=== PATIENT | female | born 1955 | race Caucasian/White ===

== ENCOUNTER 2023-12-28 21:04 | Emergency (ER) | payer OTHER, SELFPAY ==
[2023-12-28 21:07] VITALS: BP 174/100
[2023-12-28 21:21] LABS: % Basophils 0.4 % (0-2); % Eosinophils 0.6 % (0-6); % Immature Granulocytes 0.1 % (0-0.5); % Lymphocytes 27.9 % (20.5-51.1); % Monocytes 8.4 % (1.7-9.3); % Neutrophils 62.6 % (42.2-75.2); Absolute Monocytes 0.6 10^3/uL (0.1-0.6); Absolute Neutrophils 4.5 10^3/uL (1.4-6.5); Hematocrit 41.7 % (37.0-47.0); Hemoglobin 14.2 g/dL (12.0-16.0); Mean Corp Hgb Conc. 34.1 g/dL (33.0-37.0); Mean Corpuscular Hgb 28.3 pg (27.0-31.0); Mean Corpuscular Volume 83.2 fL (81.0-99.0); Nucleated Red Blood Cells % 0 %; Platelet Count 299 10^3/uL (130-400); Red Blood Cell Count 5.01 10^6/uL (4.20-5.40); Red Cell Dist. Width 13.4 % (11.5-14.5); White Blood Cell Count 7.2 10^3/uL (4.8-10.8)
[2023-12-28 21:38] LABS: ALT (SGPT) 30 U/L (0-35); AST (SGOT) 32 U/L (14-36); Albumin 4.9 g/dl (3.5-5.0); Alkaline Phosphatase 178 U/L (38-126); Blood Urea Nitrogen 27 mg/dl (7-17); Calcium 10.3 mg/dl (8.4-10.2); Carbon Dioxide 23 mmol/L (22-30); Chloride 97 mmol/L (98-107); Glucose 111 mg/dl (70-99); Potassium 5.6 mmol/L (3.5-5.1); Sodium 133 mmol/L (135-145); Total Bilirubin 1.2 mg/dl (0.2-1.3); Total Protein 8.4 g/dl (6.3-8.2); eGFR 55.07
[2023-12-28 21:50] LABS: Troponin I < 0.012 ng/ml
[2023-12-28 22:10] VITALS: BMI 37.8
[2023-12-28 22:11] VITALS: BP 140/86
--- NOTE | 2023-12-28 22:41 | ED.GENMED ---
History of Present Illness
General
Chief Complaint: Heart Rate Problem
Source: patient
Exam Limitations: none
Time Seen by Provider: 12/28/23 22:22
Nursing documentation reviewed up to this point in time: agreed with
Travel History
Have you had any contact with someone who has COVID-19?: No
Do you have any symptoms of coronavirus? Fever > 100 degrees, chills, cough, shortness of breath, sore throat, loss of taste or smell, muscle aches, or headache?: No
History of Present Illness
History of Present Illness:
This is a pleasant 68-year-old female that presents with palpitations and shakiness. Patient has been on benzodiazepines for the last few years. She is trying to wean herself off. She does take 0.5 mg of lorazepam every other day and 0.25 mg on
opposite days. This is new since she is started to wean herself off. She was initially on 1 mg daily. She states that when she went down to a lower dose, she started to feel the symptoms. Denies fevers but does report occasional chills. She
does report shakiness. Denies nausea and vomiting. Reports no chest pain or shortness of breath.
Vital signs are stable. Patient not hypoxic
Nursing note reviewed. I agree with nursing documentation up to this point in time.
Home Meds and allergies reviewed.
NUMBER AND COMPLEXITY OF PROBLEMS ADDRESSED AT THE ENCOUNTER
� Chronic conditions affecting care: Anxiety, hypertension, hyperlipidemia
� Acute Exacerbation and/or Progression of Chronic Illness:
� Differential Diagnosis includes: Dehydration, benzodiazepine withdrawal, anxiety
AMOUNT AND/OR COMPLEXITY OF DATA TO BE REVIEWED AND ANALYZED
I performed an independent evaluation of the following and my interpretation is:
EKG: EKG shows sinus tachycardia rate of 101 with normal intervals, normal axis. No evidence of acute ischemia present.
CT:
X-rays:
Ultrasound:
Laboratory Studies: Potassium is 5.6, sodium is 133, BUN is 27, creatinine is 1.1.
Other:
Review of other/old records:
Clinical information was obtained by an independent historian:
Prescriptions/Medications Considered but not given:
Further testing considered but not performed:
RISK OF COMPLICATIONS AND/OR MORBIDITY OR MORTALITY OF PATIENT MANAGEMENT
Social determinants of health affecting care: Good Social Support family is at the bedside
Discussion with other providers:
Escalation of care including admission/observation vs risk of discharge considered:
CRITICAL CARE NOTE:
Total Time (exclusive of procedures):
Update:
Past History
Past History
ED Past Medical History: GERD, HTN, Hypercholesterolemia and Other ( peripheral neuropathy of her feet)
ED Past Surgical History: Cholecystectomy, and Orthopedic
Social History
Tobacco: Non-smoker
Alcohol: Occasional
Drug: None
Personal:
Living: with family
Family History
Family History: Negative Diabetes, Hypertension, Early CAD, Asthma or Cancer
Review of Systems
Review of Systems
Allergies reviewed?: Yes
Other source history: family (Daughter and significant other present at the bedside)
All Other Systems: ROS reviewed and negative except as documented in HPI and ROS
Constitutional: Reports chills
EENT: Denies mouth swelling
Respiratory: Denies trouble breathing
Cardiac: Reports palpitations; Denies chest pain, diaphoresis or syncope
ABD/GI: Reports no symptoms
: Reports no symptoms
Musculoskeletal: Reports no symptoms
Skin: Reports no symptoms
Neurological: Reports no symptoms
Endocrine: Reports no symptoms
Hematologic/Lymphatic: Reports no symptoms
Psychiatric: Reports anxiety
Phy Exam
General Physical Exam
General Presentation: well appearing and mild distress
General age: appears stated age
General Skin: warm and dry
General Habitus: normal
General Mental: alert
General Hydration: appears well hydrated
ENT Exam
ENT Exam: EOMI, pharynx normal, neck supple and normocephalic
Eye Exam
Eye Exam: PERRL, cornea clear and conjunctiva normal
Cardiovascular Exam
Cardiovascular Exam: regular rate/rhythm and tachycardia
Pulmonary Exam
Pulmonary Exam: lungs clear
Gastrointestinal Exam
Gastrointestinal Exam: normal bowel sounds, non tender, soft, no organomegaly, no pulsatile mass and non distended
Neurological Exam
Neurological Exam: alert, oriented x3, no motor deficits and speech normal
Musculoskeletal Exam
Musculoskeletal Exam: full ROM and neuro vasc intact
Skin Exam
Skin Exam: warm/dry
Psychiatric Exam
Psychiatric Exam: normal mood/affect and anxious
Course
Orders/Labs/Results
Orders:
Orders
12/28/23 21:06
EKG [Electrocardiogram (*1)] Urgent
Reason for Study: Tachycardia
EKG- Treatment ONCE
12/28/23 21:11
IV Insert/Care/Rem.- Treatment PRN
12/28/23 21:16
Complete Blood Count/With Diff Urgent
Comprehensive Metabolic Panel Urgent
Troponin I Urgent
12/28/23 22:40
0.9% Sodium Chloride 1000 ml [Nss] 1,000 ml IV BOLUS
Diphenhydramine [Benadryl] 25 mg IV NOW STA
12/28/23 23:12
Crisis Consult Urgent
Reason for Consult: feeling of doom
12/29/23 01:08
Comprehensive Metabolic Panel Urgent
Abnormal Lab Results
12/28/23 12/29/23
21:16 01:08
Sodium 133 L mmol/L
(135-145)
Potassium 5.6 H mmol/L
(3.5-5.1)
Chloride 97 L mmol/L
(98-107)
BUN 27 H mg/dl 24 H mg/dl
(7-17) (7-17)
Creatinine 1.1 H mg/dL
(0.6-1.0)
Glucose 111 H mg/dl
(70-99)
Calcium 10.3 H mg/dl
(8.4-10.2)
Alkaline Phosphatase 178 H U/L 132 H U/L
(38-126) (38-126)
Total Protein 8.4 H g/dl
(6.3-8.2)
12/28/23 21:16
12/29/23 01:08
Vital Signs
Initial and Last Documented VS:
Initial Vital Signs
Temp Pulse Resp BP Pulse Ox
98.2 F 107 17 174/100 99
12/28/23 21:07 12/28/23 21:07 12/28/23 21:07 12/28/23 21:07 12/28/23 21:07
Last Documented Vital Signs
Temp Pulse Resp BP Pulse Ox
98.2 F 98 20 110/70 98
12/28/23 21:07 12/29/23 01:45 12/29/23 01:45 12/29/23 00:52 12/29/23 00:52
*EKG
Interpreted by ED Provider?: Yes
EKG Intrepretation Date: 12/28/23
Interpretation: normal
Comparison EKG: no comparison EKG present
*Critical Care Note
Total Time (30-74mins, 75-104mins- exclusive of procedures): Not Applicable
Update Note
Update Note:
12/28/2023 2313 PM: Back in to see the patient. Discussed lab work including potassium. She will get fluid hydration and we will recheck. She does state that she 'feels doom 'we will put in for crisis consult. She is agreeable to this.
12/29/2023 0022 AM: Patient seen by crisis and they are clearing her for discharge. They are given her outpatient resources. Patient denied suicidality to them. Family is in agreement.
12/29/2023 0141 AM: Repeat lab work shows much improvement. Patient wishes to be discharged home. She does have resources from [facility]. Patient being discharged in much improved condition.
ED Attending Note
-
Portions of this chart may have been created with voice recognition software.� Occasional wrong word or��sound alike� substitutions may have occurred due to the inherent limitations of voice recognition software.
Discharge Plan
Departure
Patient Disposition: Home (Routine Discharge)
Date of Disposition: 12/29/23
Time of Disposition: 01:46
Patient with high blood pressure during this ER visit?: No
Condition: Good
Discharge Problem:
Acute dehydration, Anxiety, Benzodiazepine withdrawal, Acute hyperkalemia, Mild renal insufficiency
Instructions: Dehydration, Adult (DC), Anxiety, Adult (DC)
Prescriptions:
No Action
lorazepam [Ativan] 0.5 MG tablet
1 mg PO DAILY PRN (Reason: prn)
Rx Instructions:
patient takes it daily
duloxetine 60 MG capsule,delayed release(DR/EC)
60 mg PO DAILY
atorvastatin 40 MG tablet
40 mg PO DAILY
buspirone [BuSpar] 5 mg Tablet
10 mg PO DAILY
spironolactone 50 mg Tablet
50 mg PO DAILY
duloxetine
30 mg PO DAILY
omeprazole magnesium [Prilosec OTC] 20 MG tablet,delayed release (DR/EC)
20 mg PO DAILY PRN (Reason: reflux)
Referrals:
Maria De Jesus Ibanez MD [Family Provider] -
Activity Restrictions/Additional Instructions:
It was a pleasure meeting you and taking part in your care. We hope for your continued healing and wellness.
Please read discharge instructions in their entirety. However, they are for general education and may not describe your exact diagnosis at discharge. Information on your ER visit and medical conditions were discussed with you along with appropriate
follow up information...
If indicated, please take your medications as instructed and indicated on discharge paperwork.
Please schedule a follow up appointment as directed. Call to schedule an appointment
Please return to the emergency department with ANY change in, persisting, or worsening of symptoms. If any of your symptoms do not improve, or persist, or become more severe within 6-12 hours, please return to the emergency department for further
care.
Please return to the emergency department if you develop a headache, neck pain/stiffness, fever greater than 100.4F, chest pain, shortness of breath, persistent nausea, vomiting, slurred speech, difficulty walking, numbness/tingling, weakness, signs
of infection or any other symptoms that are worrisome to you.
If you have any questions or concerns please do not hesitate to call the Hospital at or E-mail me directly at [email or web address]
Interventions
Interventions:
*Risk Screen - Suicide Last Done: 12/28/23 21:07
*General Assessment Last Done: 12/28/23 21:07
*Neglect/Abuse Screening Last Done: 12/28/23 23:12
ED- Fall Risk Assessment Last Done: 12/28/23 22:11
*ED COVID-19 Vaccine History Last Done: 12/28/23 21:07
*Nursing Disposition Last Done: 12/29/23 01:55
ED- Cardiac Assessment Last Done: 12/28/23 22:11
ED- Pulmonary Assessment Last Done: 12/28/23 22:11
Discharge Date and Time
Discharge Date/Time: 12/29/23 01:55
[2023-12-28 23:12] VITALS: BP 118/80
[2023-12-28] MEDS: NSS 1000 IV (23:13)
[2023-12-28] MEDS: BENADRYL 25 MG IV (23:16)
[2023-12-29 00:52] VITALS: BP 110/70
[2023-12-29 01:39] LABS: ALT (SGPT) 24 U/L (0-35); AST (SGOT) 29 U/L (14-36); Albumin 3.5 g/dl (3.5-5.0); Alkaline Phosphatase 132 U/L (38-126); Blood Urea Nitrogen 24 mg/dl (7-17); Calcium 8.8 mg/dl (8.4-10.2); Carbon Dioxide 24 mmol/L (22-30); Chloride 104 mmol/L (98-107); Estimated Creatinine Clearance 60 ml/min; Glucose 87 mg/dl (70-99); Potassium 4.7 mmol/L (3.5-5.1); Sodium 135 mmol/L (135-145); Total Bilirubin 0.9 mg/dl (0.2-1.3); Total Protein 6.3 g/dl (6.3-8.2); eGFR > 60.00
== END 2023-12-29 01:55 | disposition home or self-care (01) ==
LOC: EMR 21:04
PROVIDERS: Emergency Medicine; EMERGENCY PHYSICIAN Student in an Organized Health Care Education/Training Program; FAMILY PHYSICIAN Internal Medicine
DX: E86.0 Dehydration (principal); F41.9 Anxiety disorder, unspecified; F13.239 Sedative, hypnotic or anxiolytic dependence with withdrawal, unspecified; E87.5 Hyperkalemia; N28.9 Disorder of kidney and ureter, unspecified; I10 Essential (primary) hypertension; E78.00 Pure hypercholesterolemia, unspecified; K21.9 Gastro-esophageal reflux disease without esophagitis; Z90.49 Acquired absence of other specified parts of digestive tract
CPT/HCPCS: 99283; 96374; 96361; 80053; 84484; 85025; 93005

== ENCOUNTER → 2023-12-29 13:48 | Outpatient (REF) | payer OTHER, SELFPAY | LOC: HWRCS 13:48 | PROVIDERS: ATTENDING PHYSICIAN Internal Medicine Interventional Cardiology; FAMILY PHYSICIAN Internal Medicine | DX: I10 Essential (primary) hypertension (principal); R06.00 Dyspnea, unspecified | CPT/HCPCS: 93306 ==

== ENCOUNTER → 2024-03-19 14:37 | Outpatient (REF) | payer OTHER, SELFPAY | LOC: RCS 14:37 | PROVIDERS: ATTENDING PHYSICIAN Internal Medicine Interventional Cardiology; FAMILY PHYSICIAN Internal Medicine | DX: R06.00 Dyspnea, unspecified (principal); I10 Essential (primary) hypertension | CPT/HCPCS: 93017; 93350; Q9957 ==

== ENCOUNTER 2024-11-17 00:27 | Emergency (ER) | payer OTHER, SELFPAY ==
[2024-11-17 00:34] VITALS: BP 140/88
[2024-11-17 01:07] LABS: % Basophils 0.6 % (0-2); % Eosinophils 0.8 % (0-6); % Immature Granulocytes 1.3 % (0-0.5); % Lymphocytes 21.6 % (20.5-51.1); % Monocytes 13.2 % (1.7-9.3); % Neutrophils 62.5 % (42.2-75.2); Absolute Immature Granulocytes 0.1 10^3/uL (0-0.05); Absolute Monocytes 0.6 10^3/uL (0.1-0.6); Hematocrit 39.2 % (37.0-47.0); Mean Corp Hgb Conc. 33.2 g/dL (33.0-37.0); Mean Corpuscular Hgb 28.4 pg (27.0-31.0); Mean Corpuscular Volume 85.8 fL (81.0-99.0); Mean Platelet Volume 9.4 fL (7.4-10.4); Nucleated Red Blood Cells % 0 %; Platelet Count 206 10^3/uL (130-400); Red Blood Cell Count 4.57 10^6/uL (4.20-5.40); Red Cell Dist. Width 13.4 % (11.5-14.5); White Blood Cell Count 4.8 10^3/uL (4.8-10.8)
[2024-11-17 01:17] LABS: ALT (SGPT) 30 U/L (0-35); AST (SGOT) 29 U/L (14-36); Albumin 4.4 g/dl (3.5-5.0); Alkaline Phosphatase 137 U/L (38-126); Blood Urea Nitrogen 19 mg/dl (7-17); Calcium 8.9 mg/dl (8.4-10.2); Carbon Dioxide 28 mmol/L (22-30); Chloride 95 mmol/L (98-107); Glucose 135 mg/dl (70-99); Lipase 172 U/L (23-300); Potassium 4.6 mmol/L (3.5-5.1); Sodium 132 mmol/L (135-145); Total Bilirubin 0.7 mg/dl (0.2-1.3); Total Protein 7.4 g/dl (6.3-8.2); eGFR > 60.00
[2024-11-17 01:30] LABS: Troponin I < 0.012 ng/ml
== END 2024-11-17 04:01 | disposition left against medical advice (07) ==
LOC: EMR 00:27
PROVIDERS: Emergency Medicine; EMERGENCY PHYSICIAN Emergency Medicine
DX: R07.9 Chest pain, unspecified (principal); Z53.21 Procedure and treatment not carried out due to patient leaving prior to being seen by health care provider
CPT/HCPCS: 80053; 83690; 84484; 85025; 93005

== ENCOUNTER → 2025-05-06 13:34 | Outpatient (REF) | payer OTHER, SELFPAY | LOC: HWWDC 13:34 | PROVIDERS: ATTENDING PHYSICIAN Family Medicine | DX: Z12.31 Encounter for screening mammogram for malignant neoplasm of breast (principal) | CPT/HCPCS: 77063; 77067 ==